=== PATIENT | male | born 1955 | race Caucasian/White ===

== ENCOUNTER → 2022-04-09 13:12 | Outpatient (BNVA) | payer OTHER, SELFPAY | PROVIDERS: Family Provider Internal Medicine; PCP Internal Medicine; Visit Provider Orthopaedic Surgery | DX: M47.812 Spondylosis without myelopathy or radiculopathy, cervical region (principal) | CPT/HCPCS: 72050 ==

== ENCOUNTER 2022-04-11 16:26 | Outpatient (CLI) | payer OTHER, SELFPAY ==
--- NOTE | 2022-04-11 16:45 | MR_ITS ---
WS: [id number] MRI CERVICAL SPINE NONCONTRAST TECHNIQUE: Sagittal T1, T2 and STIR imaging. Axial T2, gradient, and fiesta imaging. CLINICAL INFORMATION: pain COMPARISON: None. FINDINGS: Straightening of the normal cervical lordosis. Moderate spondylitic changes. Disc space narrowing wor se at C3-C4 C4-C5 and C5-C6. Disc osteophyte complex worse at C5-C6 and C6-C7. Cord signal is normal. C2-C3: Normal. C3-C4: Disc osteophyte complex with endplate ridging. Moderate LEFT and no significant RIGHT foramina l narrowing. Mild facet arthropathy. Spinal canal is patent. C4-C5: Disc osteophyte complex with endplate ridging. Mild LEFT and no significant RIGHT foraminal na rrowing. Moderate facet arthropathy. Spinal canal is patent. C5-C6: Disc osteophyte complex endplate ridging. Mild central canal stenosis. Mild to moderate bilate ral bony foraminal narrowing. Moderate facet arthropathy. C6-C7: RIGHT pericentral disc osteophyte protrusion. Slight contact of the RIGHT ventral cervical cor d. Mild central canal stenosis. Foramen are patent. C7-T1: No significant disc bulging. Spinal canal and foramen are patent. Visualized brain stem structures: Normal. Prevertebral soft tissues: Normal. MR/MR cervical spin wo con* [id number] IMPRESSION: 1. Straightening of the normal cervical lordosis. Cord signal is normal. Moder ate spondylitic changes. 2. Mild central canal stenosis due to disc osteophyte complexes at C5-C6 and C 6-C7 described above. 3. Moderate LEFT C3-C4, mild LEFT C4-C5, mild to moderate bilateral C5-C6 bony foraminal narrowing.
== END 2022-04-11 16:27 | disposition home or self-care (01) ==
PROVIDERS: Family Provider Internal Medicine; PCP Internal Medicine; Visit Provider Orthopaedic Surgery
DX: M48.02 Spinal stenosis, cervical region (principal); M25.78 Osteophyte, vertebrae
CPT/HCPCS: 72141

== ENCOUNTER 2023-06-11 05:51 | Day surgery (SDC) | payer OTHER, SELFPAY ==
[2023-06-11] VITALS (9 sets, daily range): BP systolic 100–172; BP diastolic 45–87; PULSE 66–78; RESP 16–17; TEMP 36.1–36.3; O2SAT 93–100; BMI 28.8
[2023-06-11] MEDS: sodium chloride 0.9% 1,000 ML 30 ML IV (06:29)
[2023-06-11] MEDS: ketorolac 30 mg/mL INJ IVP (06:30)
[2023-06-11] MEDS: scopolamine 1.5 Patch 1 PATCH TRANSDERMA (06:30)
[2023-06-11] MEDS: acetaminophen 1,000 MG/100 ML PIGGYBACK 400 MG IV (06:31)
--- NOTE | 2023-06-11 06:46 | P.ANESASSM_ITS ---
Pre-Anesthetic Assessment Height/Weight: Height 1.85 m Weight 99.337 kg Temp Pulse Resp BP Pulse Ox O2 Del Method 97.1 F L 66 17 162/82 93 Room Air 06/11/23 06:38 06/11/23 06:38 06/11/23 06:38 06/11/23 06:38 06/11/23 06:38 06/11/23 06:38 Operation Date: 06/11/23 07:00 Proposed Procedures p Carpal Tunnel Release(Bilateral) - Kevin Mahoning, DO s Cubital Tunnel Release(Bilateral) - Kevin Mahoning, DO s Ulnar Nerve Transposition(Bilateral) - Kevin Gertrude, DO Was Beta Stephania taken within 24 hours: N/A Was Clonidine taken within 24 hours: N/A Last intake: Intake Last Liquid Date 06/10/23 Last Liquid Time 23:58 Last Solid Date 06/10/23 Last Solid Time 18:00 Social No tobacco Exam alert and oriented x 3 Airway Submandibular: within normal limits Cervical ROM: Other Mallampati: Class II Comments: Comments: Cervical spodylosis History/ROS No significant history except as noted and No significant complaints Anesthetic Plan ASA status: 2 Anesthesia: General Risk of > 500 ml blood loss (7ml/kg in children): No Medications/Allergies Home Medications Medication Instructions Recorded Confirmed Last Taken Type tizanidine 4 mg tablet 6 mg (1.5 x 4 mg) PO DAILY PRN 04/24/20 06/10/23 Unknown Rx muscle spasticity #135 tabs celecoxib 200 mg capsule (Celebrex) 200 mg PO DAILY #90 caps 05/09/20 06/11/23 06/10/23 Rx cyclobenzaprine 5 mg tablet 5 mg PO TID PRN muscle spasm #90 04/09/22 06/10/23 Unknown Rx tabs Allergies Allergy/AdvReac Type Severity Reaction Status Date / Time No Known Allergies Allergy Verified 06/11/23 06:01 Current Medications Generic Name Dose Route Start Last Admin Trade Name Freq PRN Reason Stop Dose Admin Sodium Chloride 1,000 mls @ 30 mls/hr 06/11/23 06:30 06/11/23 06:29 Sodium Chloride 0.9% IV 06/12/23 06:29 30 mls/hr .Q24H MANOLO Administration PFSH Anesthesia Social History (Updated 05/09/23 @ 10:01 by Wendy Zamarripa LPN) Smoking and tobacco/nicotine status: never used tobacco/nicotine Alcohol intake: current Alcohol intake frequency: 0-2 Drinks per Day service: Yes Data Anesthesia Cardiac Studies: No Data to Display
--- NOTE | 2023-06-11 06:53 | P.HP_ITS ---
Same Day Surgery H&P Indication for Procedure/HPI DATE OF PROCEDURE: June 11, 2023 CHIEF COMPLAINT/INDICATIONFOR SURGICAL PROCEDURE: Bilateral carpal tunnel syndrome, bilateral cubital tunnel syndrome PREOP DIAGNOSIS: Bilateral carpal tunnel syndrome, bilateral cubital tunnel syndrome PLANNED PROCEDURE: Operation Date: 06/11/23 07:00 Proposed Procedures p Carpal Tunnel Release(Bilateral) - Kevin Sweet Grass, DO s Cubital Tunnel Release(Bilateral) - Kevin Sweet Grass, DO s Ulnar Nerve Transposition(Bilateral) - Kevin Sweet Grass, DO Medications/Allergies* Allergies/Adverse Reactions Allergy/AdvReac Type Severity Reaction Status Date / Time No Known Allergies Allergy Verified 06/11/23 06:01 Current Medications: Generic Name Dose Route Start Last Admin Trade Name Freq PRN Reason Stop Dose Admin Sodium Chloride 1,000 mls @ 30 mls/hr 06/11/23 06:30 06/11/23 06:29 Sodium Chloride 0.9% IV 06/12/23 06:29 30 mls/hr .Q24H MANOLO Administration Pertinent History/Comorbid Conditions* Social History Smoking and tobacco/nicotine status: never used tobacco/nicotine Alcohol intake: current Alcohol intake frequency: 0-2 Drinks per Day service: Yes Pertinent Exam Findings alert, oriented x 3, operative site marked and procedure specific exam findings Refer to previous office note for detailed orthopedic examination 05/09/2023 Recommendations Surgery/Procedure today Other Plans: Plan to proceed with the OR today for bilateral carpal tunnel release, bilateral cubital tunnel release with possible nerve transposition. Patient understands and agrees with current plan. All questions answered. Coding Level of Care Code Acute Code for Nakita Blevins
[2023-06-11] MEDS: ceFAZolin 2,000 MG in sodium chloride 0.9% (plus) 50 ML 100 MG IV (07:05)
[2023-06-11] MEDS: lidocaine-epi 1% 20 mL INJ INJECTION (09:20)
[2023-06-11] MEDS: ROPivacaine 0.5% SDV 30 mL 150 MG INJECTION (09:20)
--- NOTE | 2023-06-11 10:05 | P.BOP_ITS ---
Date of Procedure: [June 11, 2023] Surgeon: [Dr. Loredo DO] Employee Health Nurse(s): [Richardson Loredo PA-C] Procedure(s) performed: [Right carpal tunnel release Right cubital tunnel release Left carpal tunnel release Left cubital tunnel release] Findings of the procedure(s): [Bilateral carpal tunnel syndrome and bilateral cubital tunnel syndrome] Estimated blood loss: [20 ml] Specimen(s) removed: [N/A] Post-operative diagnosis: [Bilateral carpal tunnel syndrome and bilateral cubital tunnel syndrome]
--- NOTE | 2023-06-11 10:09 | PM.PACU ---
PACU note Narrative: Patient is a 67-year-old male who just underwent bilateral carpal tunnel release and bilateral cubital tunnel release. Patient transferred to PACU in stable condition. Pain is well controlled. Splint on left hand is intact and dry. Dressing on bilateral hands is dry and in place. Patient's fingers are warm and well-perfused. Patient can wiggle fingers. normal cap refill under 2 seconds. Patient has normal elbow range of motion. Unable to assess sensation due to residual localized anesthetic. Exam: somnolent, arousable Disposition: discharged
--- NOTE | 2023-06-11 15:09 | ANE.PACU2 ---
Inpatient post-anesthesia follow up: Vital signs: Temperature 97.4 F Pulse Rate 76 Respiratory Rate 17 Blood Pressure 164/85 Pulse Oximetry 96 Oxygen Delivery Me thod Room Air Oxygen Flow Rate 8 Fraction of Inspir ed Oxygen Hydration adequate: Yes Nausea and vomiting: No Mental status: Baseline Additional Comments: no apparent anesthetic complications noted
--- NOTE | 2023-06-11 17:45 | P.OP_ITS ---
Operative Report Date of procedure: June 11, 2023 Surgeon: Kevin Loredo DO Quality Assurance Monitor Body: Richardson Loredo PA-C: PA was necessary for assistance in this case with hand positioning to execute the procedure, retraction and protection of neurovascular structures as well as to assist with wound closure and dressing application. Procedure: Preoperative diagnosis: Bilateral carpal tunnel syndrome, bilateral cubital tunnel syndrome postop Diagnosis: Same Procedure done: Right carpal tunnel release Left carpal tunnel release Right?cubital?tunnel release (ulnar nerve decompression at elbow) Left cubital tunnel release ( ulnar nerve decompression at elbow) Surgeon: Kevin Loredo DO Estimated blood loss: 20 mL Tourniquet? 29 minutes Right 46 mins left IV fluids: 1000mL Complications: None Findings: See operative report narrative Condition: stable Disposition: same day Brief History: Patient's been seen and worked up in the outpatient setting and findings consistent with preoperative diagnosis.? Patient has bilateral carpal tunnel syndrome as well as bilateral?cubital?tunnel syndrome which has been worked up in the outpatient setting has physical exam findings consistent with this as well as confirmatory nerve conduction/EMG nerve conduction study consistent with diagnosis.? Patient's failed conservative treatment.? As result through shared decision making agreed to proceed with? bilateral carpal tunnel and bilateral?cubital?tunnel release we talked about treatment options as far as nonoperative and operative intervention.? Understands risk benefits complication alternatives surgical nonsurgical treatment options.? Understanding his risks he agrees to proceed with surgical intervention. Understanding these risks he agrees to proceed with surgery.? Consent obtained in office. Procedure: Patient seen evaluate in the preoperative holding area.? Consent was reviewed and signed with patient.? Correct extremity marked.? Patient seen evaluated by anesthesia department once cleared for surgery was then taken back to the operative suite placed in supine position all bony prominences well-padded patient properly secured to bed.? bilateral upper extremity placed onto armboard.? Nonsterile tourniquet applied bilateral upper arm.? Patient then underwent anesthesia per the anesthesia department.? Patient's bilateral upper extremities were then prepped and draped in standard orthopedic fashion.? Final timeout performed.? Patient received appropriate preoperative antibiotics. Esmarch was used exsanguinate the right upper extremity.? Tourniquet was insufflated to 250 mmHg. I started with the carpal tunnel release first.? I made a standard open carpal tunnel release starting with the distal most extent in the palm at the Mckinney's cardinal line and the incision line was made in line with the fourth ray and ended just distal to the wrist crease.? Sharp scalpel incision was made through skin and subcutaneous tissue I then utilizing self retainer then began to dissect with dissection scissors split longitudinally the palmar fascia.? Next I then utilizing my assistant community director Yandel retractors subsequently utilizing scalpel f eathered through the palmaris brevis as well as through the transverse carpal ligament distally.? Once I encountered the floor of the transverse carpal ligament and entered into the carpal tunnel I then switched to dissection scissors.? Carefully released the distal extent of the transverse carpal ligament to the palmar fat.? Care was to protect the recurrent branch and not injured this during this part of the case.? Next I then placed a Harper underneath the transverse carpal ligament proximally to protect the nerve in the carpal tunnel contents.? And then I subsequently under loupe magnification utilize my dissection scissors to release the transverse carpal ligament into the antebrachial fascia under direct visualization with care to keep my scissors with a curved ulnarly away from the palmar cutaneous branch.? The transverse carpal was then completely decompressed proximally and a Harper was then placed both distally and proximally throughout the carpal tunnel and had complete decompression of the nerve.? The nerve did appear to have hourglass shape as it went through the carpal tunnel.? With significant irritation noted around the nerve.? No masses were noted within the contents of the carpal tunnel.? This completed the carpal tunnel release and then I subsequently irrigated the wound bed and placed a wet Ray-Taco into the incision for later closure. Next marked out the landmarks of the right elbow of the medial epicondyle and olecranon and made a curvilinear incision following the course of the ulnar nerve at the medial aspect of the elbow.? Sharp scalpel incision was made through skin and subcutaneous tissue.? Next I switched to Littler dissection scissors and spread in plane of the medial antebrachial cutaneous nerve branching which was protected throughout this part of the dissection.? Then I directly came down over the fascia and identified the 2 heads of the FCU fascia and split this right in the middle and subsequently identified my ulnar nerve distally.? This was then completely released distally under direct visualization and loupe magnification.? Once the nerve was then identified I then subsequently tracked this proximally and released this through Joe's ligament as well as complete decompression of the nerve proximally all the way past the intermuscular septum.? The nerve was completely released and decompressed both proximally and distally.? Ulnar nerve neurolysis performed and completed both proximally and distally with dissection scissors.? I then took the elbow through range of motion and there was no instability or subluxating of the ulnar nerve.? This completed?cubital?tunnel release.? ?Next the wound bed was thoroughly irrigated.? Tourniquet was deflated.? Hemostasis was satisfactory at the?cubital?tunnel release surgery site. I then inspected the carpal tunnel incision and this was found to have satisfactory hemostasis and all this was maintained through bipolar electrocautery.? At this point time I sequentially closed?cubital?tunnel site with 3-0 Vicryl suture in a running horizontal mattress nylon stitch.? ? The carpal tunnel release surgery was then closed in standard interrupted mattress fashion.? Dressing was Xeroform 4 x 4's ABD Curlex soft roll and an Jesus wrap has a bulky soft dressing. Next I proceeded with the left side. Esmarch was used exsanguinate the right upper extremity.? Tourniquet was insu fflated to 250 mmHg. I started with the carpal tunnel release first.? I made a standard open carpal tunnel release starting with the distal most extent in the palm at the Mckinney's cardinal line and the incision line was made in line with the fourth ray and ended just distal to the wrist crease.? Sharp scalpel incision was made through skin and subcutaneous tissue I then utilizing self retainer then began to dissect with dissection scissors split longitudinally the palmar fascia.? Next I then utilizing my assistant community director Yandel retractors subsequently utilizing scalpel feathered through the palmaris brevis as well as through the transverse carpal ligament distally.? Once I encountered the floor of the transverse carpal ligament and entered into the carpal tunnel I then switched to dissection sc issors.? Carefully released the distal extent of the transverse carpal ligament to the palmar fat.? Care was to protect the recurrent branch and not injured this during this part of the case.? Next I then placed a Harper underneath the transverse carpal ligament proximally to protect the nerve in the carpal tunnel contents.? And then I subsequently under loupe magnification utilize my dissection scissors to release the transverse carpal ligament into the antebrachial fascia under direct visualization with care to keep my scissors with a curved ulnarly away from the palmar cutaneous branch.? The transverse carpal was then completely decompressed proximally. However utilizing a Harper patient had significantly taut median antebrachial fascia band that was tethering the median nerve. Unfortunately patient's subcutaneous fat was inhibiting direct visualization as a result I ended up proceeding to extend my incision past the wrist crease with a standard Alba approach past the wrist crease to this band. I had direct visualization used Littler dissection scissors and dissected directly over the antebrachial fascia. I then subsequently under direct visualization incised this fascial band and patient had complete decompression of the nerve.? This was confirmed with a Harper. The nerve did appear to have hourglass shape as it went through the carpal tunnel.? With significant irritation noted around the nerve.? No masses were noted within the contents of the carpal tunnel.? This completed the carpal tunnel release and then I subsequently irrigated the wound bed and placed a wet Ray-Taco into the incision for later closure. Next marked out the landmarks of the left elbow of the medial epicondyle and olecranon and made a curvilinear incision following the course of the ulnar ne rve at the medial aspect of the elbow.? Sharp scalpel incision was made through skin and subcutaneous tissue.? Next I switched to Littler dissection scissors and spread in plane of the medial antebrachial cutaneous nerve branching which was protected throughout this part of the dissection.? Then I directly came down over the fascia and identified the 2 heads of the FCU fascia and split this in the middle and subsequently identified my ulnar nerve distally.? This was then completely released distally under direct visualization and loupe magnification.? Once the nerve was then identified I then subsequently tracked this proximally and released this through Joe's ligament as well as complete decompression of the nerve proximally all the way past the intermuscular septum.? The nerve was completely released and decompressed both proximally and distally.? Ulnar nerve neurolysis performed and completed both proximally and distally with dissection scissors.? I then took the elbow through range of motion and there was no instability or subluxating of the ulnar nerve.? This completed?cubital?tunnel release.? ?Next the wound bed was thoroughly irrigated.? Tourniquet was deflated.? Hemos tasis was satisfactory at the?cubital?tunnel release surgery site. I then inspected the carpal tunnel incision and this was found to have satisfactory hemostasis and all this was maintained through bipolar electrocautery.? At this point time I sequentially closed?cubital?tunnel site with 3-0 Vicryl suture in a running horizontal mattress nylon stitch.? ? The carpal tunnel release surgery was then closed in standard interrupted mattress fashion.? Dressing was Xeroform 4 x 4's ABD Curlex soft roll and an Jesus wrap has a bulky soft dressing. I did apply a volar splint to the left wrist given patient's incision went past the wrist crease.. Patient was then awakened from anesthesia and taken to PACU in stable condition. Disposition: Patient taken to PACU in stable condition recovering well.? Patient will receive appropriate discharge instructions as well as pain medication postoperatively.? We will follow-up with me in the office in 2 weeks.? Patient and family understands agrees with current plan.? All questions answered.? He understands if any questions or concerns and contact the office for follow-up appointment..
== END 2023-06-11 11:18 | disposition home or self-care (01) ==
PROVIDERS: Visit Provider Student in an Organized Health Care Education/Training Program
PROC: (CPT 64721; principal; 2023-06-11 07:00)
PROC: (CPT 64718; 2023-06-11 07:00)
PROC: (CPT 64718; 2023-06-11 07:00)
DX: G56.03 Carpal tunnel syndrome, bilateral upper limbs (principal); G56.23 Lesion of ulnar nerve, bilateral upper limbs
CPT/HCPCS: 64718; 64721; J0131; J0690; J1100; J1885; J2250; J2405; J2704; J2795; J3010; J7030